=== PATIENT | female | born 1965 | race Caucasian/White ===

== ENCOUNTER 2017-11-08 16:33 | Emergency (ER) | payer SELFPAY ==
--- NOTE | 2017-11-08 17:04 | UC ---
Upper Extremity HPI - History of Current Complaint Chief Complaint: EDExtremityUpper Stated Complaint: RT WRIST PAIN Time Seen by Provider: 11/08/17 17:03 Hx Obtained From: Patient Pain Intensity: 10 - Allergies/Home Medications Allergies/Adverse Reactions: Allergies Allergy/AdvReac Type Severity Reaction Status Date / Time codeine Allergy Nausea And Verified 11/08/17 16:39 Vomiting Penicillins Allergy Rash Verified 11/08/17 16:39 Physical Exam Vital Signs: Initial Vital Signs Temp 98.3 F 11/08/17 16:36 Pulse 65 11/08/17 16:36 Resp 14 11/08/17 16:36 BP 131/80 11/08/17 16:36 Pulse Ox 98 11/08/17 16:36
--- NOTE | 2017-11-08 17:37 | ED ---
Upper Extremity Pain - HPI Summary HPI Summary: Patient is a 52-year-old female who presents emergency department for a right hand and wrist injury that occurred just prior to arrival. Patient states she tripped and caught her right hand on her truck. No other injuries were sustained. Symptoms are mild in severity. Pt. states she's had surgery to right lower arm in the past and has hardware. Moving and touching right arm makes symptoms worse. Rest makes symptoms better. Denies numbness, tingling or weakness. - History of Current Complaint Chief Complaint: EDExtremityUpper Stated Complaint: RT WRIST PAIN Time Seen by Provider: 11/08/17 17:03 Hx Obtained From: Patient - Allergies/Home Medications Allergies/Adverse Reactions: Allergies Allergy/AdvReac Type Severity Reaction Status Date / Time codeine Allergy Nausea And Verified 11/08/17 16:39 Vomiting Penicillins Allergy Rash Verified 11/08/17 16:39 PMH/Surg Hx/FS Hx/Imm Hx Previously Healthy: Yes Infectious Disease History: No Infectious Disease History: Denies: Traveled Outside the [place] in Last 30 Days - Social History Alcohol Use: None Substance Use Type: Reports: None Smoking Status (MU): Never Smoked Tobacco Review of Systems Positive: Other - Right hand and wrist injury Negative: Weakness, Paresthesia, Numbness All Other Systems Reviewed And Are Negative: Yes Physical Exam Triage Information Reviewed: Yes Vital Signs On Initial Exam: Initial Vitals Temp Pulse Resp BP Pulse Ox 98.3 F 65 14 131/80 98 11/08/17 16:36 11/08/17 16:36 11/08/17 16:36 11/08/17 16:36 11/08/17 16:36 Vital Signs Reviewed: Yes Appearance: Positive: Well-Appearing - Pt. sitting on bed in NAD. Friend present. Skin: Positive: Warm, Dry Head/Face: Positive: Normal Head/Face Inspection Eyes: Positive: Normal Musculoskeletal: Positive: Other - Small contusion and pain noted over the right mid hand on the dorsal aspect. Diffuse wrist pain. No breaks in the skin. Pain radiates to elbow. Good palpable radial pulse. Procedures - Splinting Right Upper Extremity Pre-Made Type: velcro Pre-Proc Neuro Vasc Exam: normal Post-Proc Neuro Vasc Exam: normal Diagnostics - Vital Signs Vital Signs Temp Pulse Resp BP Pulse Ox 11/08/17 16:36 98.3 F 65 14 131/80 98 - Laboratory Lab Statement: Any lab studies that have been ordered have been reviewed, and results considered in the medical decision making process. Course/Dx - Course Course Of Treatment: Patient presenting with isolated right wrist and hand injury. Xrays are negative for fx or dislocation per radiology. Results discussed. Velcro splint placed. Given ortho. f.u if pain continues for re- eval. To ice and elevate. Tylenol or Motrin for pain as directed. Pt. understands and agrees with plan. - Diagnoses Differential Diagnosis/HQI/PQRI: Positive: Contusion, Fracture (Closed), Hematoma, Strain, Sprain Provider Diagnoses: Hand contusion, Wrist sprain Discharge - Sign-Out/Discharge Documenting (check all that apply): Discharge/Admit/Transfer - Discharge Plan Condition: Good Disposition: HOME Patient Education Materials: Hand Sprain (ED), Wrist Sprain (ED) Referrals: No Primary Care Phys,NOPCP [Primary Care Provider] - [facility] [place] [Outside] Eliseo Vega MD [Medical Doctor] - Additional Instructions: Schedule a follow up appointment with orthopedics if pain continues Wear splint for comfort Ice and elevate Tylenol or Motrin for pain as directed - Billing Disposition and Condition Condition: GOOD Disposition: Home
--- NOTE | 2017-11-08 17:57 | RAD ---
INDICATION: Right wrist injury. TECHNIQUE: 3 views of the right wrist were obtained. FINDINGS: There are postsurgical changes in the distal ulna. There is a surgical plate present medially transfixed with multiple screws. No acute fracture is seen. Joint spaces appear maintained. IMPRESSION: NO EVIDENCE FOR FRACTURE. IF THE PATIENT'S SYMPTOMS PERSIST RECOMMEND FOLLOW-UP IMAGING.
--- NOTE | 2017-11-08 17:59 | RAD ---
INDICATION: Right hand injury. TECHNIQUE: 4 views of the right hand were obtained. FINDINGS: The bones are in normal alignment. No fracture is seen. Joint spaces appear maintained. IMPRESSION: NO EVIDENCE FOR FRACTURE.
[2017-11-08 18:21] VITALS: BP 150/87
== END 2017-11-08 18:19 | disposition home or self-care (01) ==
LOC: ED 16:33
DX: S63.501A Unspecified sprain of right wrist, initial encounter (principal); S60.221A Contusion of right hand, initial encounter; W22.8XXA Striking against or struck by other objects, initial encounter; Y92.9 Unspecified place or not applicable; Z88.5 Allergy status to narcotic agent; Z88.0 Allergy status to penicillin
CPT/HCPCS: 99282

== ENCOUNTER 2017-11-20 09:50 | Emergency (ER) | payer SELFPAY ==
[2017-11-20 11:00] VITALS: BP 141/85
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
== END 2017-11-20 10:59 | disposition home or self-care (01) ==
LOC: ED 09:50
DX: R05 Cough (principal); R07.0 Pain in throat; Z88.5 Allergy status to narcotic agent; Z88.0 Allergy status to penicillin
CPT/HCPCS: 87651; 99282

== ENCOUNTER 2018-01-02 21:34 | Emergency (ER) | payer SELFPAY ==
[2018-01-02 22:32] LABS: ABS Basophils 0 10^3/ul (0-0.2); ABS Eosinophils 0.1 10^3/ul (0-0.6); ABS Lymphocytes 2.3 10^3/ul (1.0-4.8); ABS Monocytes 0.4 10^3/ul (0-0.8); ABS Neutrophils 3.6 10^3/ul (1.5-7.7); ABS Nucleated RBC 0 10^3/ul; Hematocrit 37 % (35-47); Hemoglobin 12.7 g/dl (12.0-16.0); Lymphocyte % 35.7 % (25-47); Mean Corpuscular HGB Conc 34 g/dl (31-36); Mean Corpuscular Hemoglobin 30 pg (27-31); Mean Corpuscular Volume 88 fL (80-97); Mean Platelet Volume 8.4 um3 (7.4-10.4); Nucleated Red Blood Cells % 0.1; Platelet Count 212 10^3/ul (150-450); Red Blood Count 4.19 10^6/ul (4.00-5.40); Red Cell Distribution Width 14 % (10.5-15); White Blood Count 6.5 10^3/ul (3.5-10.8)
[2018-01-02 22:39] LABS: INR 0.9 (0.77-1.02)
[2018-01-02 22:49] LABS: EGFR Non-African American 93.2 (>60)
[2018-01-02] MEDS ORDERED: Potassium Chlor TAB* 20 MEQ TAB.ER PO ONE (23:19)
--- NOTE | 2018-01-02 23:26 | ED ---
HPI Chest Pain - HPI Summary HPI Summary: This is scribe Acosta Lombardo documenting for attending Alphonso Solis M.D. Patient is a 52 y/o F w/ c/o left-sided chest pain radiating down her LUE onsetting 0900 today in the morning. She states she "could not move or breathe" and described chest pain as a tightness. In the room, she notes chest pain waxes and wanes. On triage, pain is rated 5/10 and nothing is noted to aggravate /alleviate Sx. Patient reports allergy to aspirin. All other home medications and allergies are reviewed. I, Dr. Solis, personally performed the services described in this documentation as scribed in my presence and it is both accurate and complete. - History of Current Complaint Chief Complaint: EDChestPainROMI Time Seen by Provider: 01/02/18 21:55 Hx Obtained From: Patient Onset/Duration: Started Hours Ago - onset today at 0900 Timing: Intermittent Current Severity: Moderate - 5/10 Pain Intensity: 5 Pain Scale Used: 0-10 Numeric - 5/10 Chest Pain Location: Left Anterior Chest Pain Radiates: Yes Chest Pain Radiates To:: Arm - LUE Character: Tightness Aggravating Factor(s): Nothing Alleviating Factor(s): Nothing Associated Signs and Symptoms: Positive: Chest Pain, Other: - "could not move or breathe"; LUE pain - Allergy/Home Medications Allergies/Adverse Reactions: Allergies Allergy/AdvReac Type Severity Reaction Status Date / Time aspirin Allergy Anaphylatic Verified 01/02/18 22:01 Shock codeine Allergy Nausea And Verified 01/02/18 21:39 Vomiting Penicillins Allergy Rash Verified 01/02/18 21:39 PMH/Surg Hx/FS Hx/Imm Hx Sensory History: Denies: Hx Legally Blind, Hx Deafness Opthamlomology History: Denies: Hx Legally Blind EENT History: Denies: Hx Deafness Infectious Disease History: No Infectious Disease History: Denies: Traveled Outside the [place] in Last 30 Days - Family History Known Family History: Negative: Blood Disorder - Social History Alcohol Use: None Hx Substance Use: No Substance Use Type: Reports: None Hx Tobacco Use: No Smoking Status (MU): Never Smoked Tobacco Review of Systems Positive: Chest Pain - left side Positive: Shortness Of Breath - "couldn't move or breathe" Positive: Other - "couldn't move or breathe"; LUE pain All Other Systems Reviewed And Are Negative: Yes Physical Exam - Summary Physical Exam Summary: VITAL SIGNS: Reviewed. GENERAL: Patient is a well-developed and nourished female who is lying comfortable in the stretcher. Patient is not in any acute respiratory distress. HEAD AND FACE: No signs of trauma. No ecchymosis, hematomas or skull depressions. No sinus tenderness. EYES: PERRLA, EOMI x 2, No injected conjunctiva, no nystagmus. EARS: Hearing grossly intact. Ear canals and tympanic membranes are within normal limits. MOUTH: Oropharynx within normal limits. NECK: Supple, trachea is midline, no adenopathy, no JVD, no carotid bruit, no c- spine tenderness, neck with full ROM. CHEST: Symmetric, no tenderness at palpation LUNGS: Clear to auscultation bilaterally. No wheezing or crackles. CVS: Regular rate and rhythm, S1 and S2 present, no murmurs or gallops appreciated. ABDOMEN: Soft, non-tender. No signs of distention. No rebound no guarding, and no masses palpated. Bowel sounds are normal. EXTREMITIES: FROM in all major joints, no edema, no cyanosis or clubbing. NEURO: Alert and oriented x 3. No acute neurological deficits. Speech is normal and follows commands. SKIN: Dry and warm Triage Information Reviewed: Yes Vital Signs On Initial Exam: Initial Vitals Temp Pulse Resp BP Pulse Ox 97.6 F 64 18 140/84 99 01/02/18 21:36 01/02/18 21:36 01/02/18 21:36 01/02/18 21:36 01/02/18 21:36 Vital Signs Reviewed: Yes Diagnostics - Vital Signs Vital Signs Temp Pulse Resp BP Pulse Ox 01/02/18 23:00 54 12 100 01/02/18 22:57 54 13 140/83 99 01/02/18 22:01 57 18 100 01/02/18 21:58 64 13 167/86 99 01/02/18 21:36 97.6 F 64 18 140/84 99 - Laboratory Lab Results: Lab Results 01/02/18 01/02/18 01/02/18 Range/Units 22:23 22:23 22:23 WBC 6.5 (3.5-10.8) 10^3/ul RBC 4.19 (4.00-5.40) 10^6/ul Hgb 12.7 (12.0-16.0) g/dl Hct 37 (35-47) % MCV 88 (80-97) fL MCH 30 (27-31) pg MCHC 34 (31-36) g/dl RDW 14 (10.5-15) % Plt Count 212 (150-450) 10^3/ul MPV 8.4 (7.4-10.4) um3 Neut % (Auto) 55.9 (38-83) % Lymph % (Auto) 35.7 (25-47) % Josephine % (Auto) 5.6 (0-7) % Eos % (Auto) 2.0 (0-6) % Baso % (Auto) 0.8 (0-2) % Absolute Neuts (auto) 3.6 (1.5-7.7) 10^3/ul Absolute Lymphs (auto) 2.3 (1.0-4.8) 10^3/ul Absolute Monos (auto) 0.4 (0-0.8) 10^3/ul Absolute Eos (auto) 0.1 (0-0.6) 10^3/ul Absolute Basos (auto) 0 (0-0.2) 10^3/ul Absolute Nucleated RBC 0 10^3/ul Nucleated RBC % 0.1 INR (Anticoag Therapy) (0.77-1.02) APTT (26.0-36.3) seconds Sodium 141 (135-145) mmol/L Potassium 3.3 L (3.5-5.0) mmol/L Chloride 108 (101-111) mmol/L Carbon Dioxide 28 (22-32) mmol/L Anion Gap 5 (2-11) mmol/L BUN 8 (6-24) mg/dL Creatinine 0.67 (0.51-0.95) mg/dL Est GFR ( Amer) 112.7 (>60) Est GFR (Non-Af Amer) 93.2 (>60) BUN/Creatinine Ratio 11.9 (8-20) Glucose 103 H (70-100) mg/dL Lactic Acid 0.8 (0.5-2.0) mmol/L Calcium 9.1 (8.6-10.3) mg/dL Total Bilirubin 0.40 (0.2-1.0) mg/dL AST 10 L (13-39) U/L ALT 7 (7-52) U/L Alkaline Phosphatase 56 (34-104) U/L Total Creatine Kinase 93 (10-223) U/L Troponin I 0.00 (<0.04) ng/mL Total Protein 6.4 (6.4-8.9) g/dL Albumin 4.0 (3.2-5.2) g/dL Globulin 2.4 (2-4) g/dL Albumin/Globulin Ratio 1.7 (1-3) 01/02/18 Range/Units 22:23 WBC (3.5-10.8) 10^3/ul RBC (4.00-5.40) 10^6/ul Hgb (12.0-16.0) g/dl Hct (35-47) % MCV (80-97) fL MCH (27-31) pg MCHC (31-36) g/dl RDW (10.5-15) % Plt Count (150-450) 10^3/ul MPV (7.4-10.4) um3 Neut % (Auto) (38-83) % Lymph % (Auto) (25-47) % Josephine % (Auto) (0-7) % Eos % (Auto) (0-6) % Baso % (Auto) (0-2) % Absolute Neuts (auto) (1.5-7.7) 10^3/ul Absolute Lymphs (auto) (1.0-4.8) 10^3/ul Absolute Monos (auto) (0-0.8) 10^3/ul Absolute Eos (auto) (0-0.6) 10^3/ul Absolute Basos (auto) (0-0.2) 10^3/ul Absolute Nucleated RBC 10^3/ul Nucleated RBC % INR (Anticoag Therapy) 0.90 (0.77-1.02) APTT 30.1 (26.0-36.3) seconds Sodium (135-145) mmol/L Potassium (3.5-5.0) mmol/L Chloride (101-111) mmol/L Carbon Dioxide (22-32) mmol/L Anion Gap (2-11) mmol/L BUN (6-24) mg/dL Creatinine (0.51-0.95) mg/dL Est GFR ( Amer) (>60) Est GFR (Non-Af Amer) (>60) BUN/Creatinine Ratio (8-20) Glucose (70-100) mg/dL Lactic Acid (0.5-2.0) mmol/L Calcium (8.6-10.3) mg/dL Total Bilirubin (0.2-1.0) mg/dL AST (13-39) U/L ALT (7-52) U/L Alkaline Phosphatase (34-104) U/L Total Creatine Kinase (10-223) U/L Troponin I (<0.04) ng/mL Total Protein (6.4-8.9) g/dL Albumin (3.2-5.2) g/dL Globulin (2-4) g/dL Albumin/Globulin Ratio (1-3) Result Diagrams: 01/02/18 22:23 01/02/18 22:23 Lab Statement: Any lab studies that have been ordered have been reviewed, and results considered in the medical decision making process. - Radiology CXR Xray Interpretation: No Acute Changes Radiology Interpretation Completed By: ED Physician - No acute process. ED physician has reviewed this imaging report pending official report - EKG 2141 Cardiac Rate: Bradycardia - Rate of 55 BPM. EKG Rhythm: Sinus Bradycardia EKG Interpretation: Normal axis. Normal interval. No ischemic changes. Re-Evaluation - Re-Evaluation First Eval Re-Evaluation Time: 23:25 Comment: Patient will be discharged to home and advised to follow up with [facility] cardiac for cardiac stress test in 1-2 days. Patient is agreeable with follow up plan. Chest Pain Course/Dx - Course Assessment/Plan: Patient is a 52 y/o F w/ c/o left-sided chest pain radiating down her LUE onsetting 0900 today in the morning. She states she "could not move or breathe" and described chest pain as a tightness. In the room, she notes chest pain waxes and wanes. On triage, pain is rated 5/10 and nothing is noted to aggravate/alleviate Sx. Patient reports allergy to aspirin. During ED course, patient was given potassium chloride 40 meq PO ED ONCE. Labs showed potassium 3.3 L, glucose 103 H, and AST 10 L. CXR was normal and EKG showed patient was slightly bradycardic with otherwise normal EKG. Patient was diagnosed with atypical chest pain. She was discharged to home and advised to follow up with [facility] for cardiac stress test in 1-2 days. Patient is agreeable with follow up plan. - Diagnoses Provider Diagnoses: Atypical chest pain Discharge - Sign-Out/Discharge Documenting (check all that apply): Patient Departure - discharge - Discharge Plan Condition: Stable Disposition: HOME Patient Education Materials: Chest Pain (ED) Referrals: Salvatore Akhtar MD [Medical Doctor] - Additional Instructions: Follow up with [facility] in 1-2 days for cardiac stress test. Return to ED for any changing or worsening symptoms.
[2018-01-02 23:41] VITALS: BP 146/90
--- NOTE | 2018-01-03 07:41 | RAD ---
Indication: Chest pain. Single frontal view of the chest performed at 2227 hours was reviewed. No prior study is available. No mediastinal shift is noted. Heart is of normal size and configuration. Lung orellana appear clear. IMPRESSION: NO ACTIVE CARDIOPULMONARY DISEASE IS NOTED. R0
== END 2018-01-02 23:47 | disposition home or self-care (01) ==
LOC: ED 21:34
DX: R07.89 Other chest pain (principal); R00.1 Bradycardia, unspecified; Z88.6 Allergy status to analgesic agent; Z88.5 Allergy status to narcotic agent; Z88.0 Allergy status to penicillin
CPT/HCPCS: 36415; 71045; 80053; 82550; 83605; 84484; 85025; 85610; 85730; 93005; 99283; A9270-GY